=== PATIENT | female | born 1995 | race Caucasian/White ===

== ENCOUNTER → 2019-03-31 | Outpatient (CLI) | payer SELFPAY ==
[2019-03-31 18:27] LABS: GLUCOSE CHALLENGE TEST 1 HOUR 111 MG/DL (LESS THAN 140)
[2019-03-31 18:29] LABS: BASO % 0.1 % (0.0-1.0); EOS # 0.2 10^3/uL (0.0-0.5); EOS % 1.8 % (0.0-3.0); HEMATOCRIT 33.4 % (36.0-47.0); HEMOGLOBIN 10.9 g/dl (12.0-15.5); LYMPH % 20.6 % (24.0-44.0); MEAN CORPUSCULAR HEMOGLOBIN 29.9 pg (27.0-33.0); MEAN CORPUSCULAR HGB CONC 32.6 g/dl (32.0-36.5); MEAN CORPUSCULAR VOLUME 91.8 fl (80.0-96.0); MONO # 0.5 10^3/uL (0.0-0.8); MONO % 5.5 % (0.0-5.0); NEUTROPHILS # 6.8 10^3/uL (1.5-8.5); NEUTROPHILS % 71.5 % (36.0-66.0); PLATELET COUNT, AUTOMATED 147 10^3/uL (150-450); RED BLOOD COUNT 3.64 10^6/uL (4.00-5.40); WHITE BLOOD COUNT 9.6 10^3/uL (4.0-10.0)
[2019-03-31 22:36] LABS: CHLAMYDIA DNA AMPLIFICATION NEGATIVE (NEGATIVE); GC DNA AMPLIFICATION NEGATIVE (NEGATIVE)
[2019-04-01 09:14] LABS: RUBELLA IgG QUALITATIVE SUSCEPTIBLE (IMMUNE)
[2019-04-01 09:43] LABS: HIV 1&2 SCREEN CENTAUR NEGATIVE (NEGATIVE)
== END ==
LOC: M SMT 14:28
PROVIDERS: ATTEND Specialist
DX: Z34.02 Encounter for supervision of normal first pregnancy, second trimester (principal); Z36.89 Encounter for other specified antenatal screening

== ENCOUNTER 2019-05-30 09:19 | Inpatient (IN) | payer OTHER, SELFPAY ==
[~2019-05-30] VITALS: Ht 157.5 cm; Wt 83.4 kg
[2019-05-30] VITALS (13 sets, daily range): BP systolic 95–139; BP diastolic 57–81
[2019-05-30] MEDS ORDERED: PENICILLIN G POTASSIUM IV 5 MU in D5W MINI-BAG PLUS 100 ML IV STA ×2 (09:49→16:36)
[2019-05-30] MEDS ORDERED: TUMS500C PO (09:58)
[2019-05-30] MEDS ORDERED: PRENTAB9 PO (09:58)
--- NOTE | 2019-05-30 10:01 | HPEPDOC ---
Obstetrical History & Physical General Date of Admission May 30, 2019 at 09:48 Primary Care Physician: MANPREET MASTERS CNM History of Present Illness Patient is a 23-year-old female who is a at 40.5 weeks based off of her LMP and consistent with a second trimester ultrasound. She initiated her care with [facility] at 26 weeks gestation. Patient had limited visits. She is Buddhism and declined some of her labs and ultrasounds due to cost. She presented to L&D with complaints of contractions and bloody show. She reports active movement. She denies leaking of fluid. Chief Complaint: Contractions, term Information Provided By: Patient Age: 23 : 1 Term: 0 Pre-term: 0 Abortions: 0 Livin Care Care: Limited Care Dating Final EDC: May 25, 2019 Final EDC by: LMP EGA at Admission: 40.5 Antepartum Course Height (inches): 62 Pre- weight (lbs.): 155 Admission Weight (lbs.): 187 Change in Weight (lbs.): 32 Past Medical History Past Obstetrical History : Past Obstetrical History: [employer] History: No pertinent history Past Medical History Medical History history of varicella Surgical History: Denies/None Family History Significant Family History: Hypertension, Other (varicose veins) Social History Marital Status: Family situation: Spouse/partner home * Smoker: non-smoker Alcohol: Denies Drugs: denies Abuse Violence Screening Have you been hit/kicked/slapp: No Have you been sexually assault: No Imunizations Tdap status: declined Influenza Status: declined Allergies Coded Allergies: No Known Allergies (Unverified , 05/30/19) Medications Scheduled No.137/Iron/Folic Acd ( Vitamin Tablet) 1 Each Tablet, 1 TAB PO DAILY Scheduled PRN Calcium Carbonate (Tums) 200 Mg Tab.chew, 2 TAB PO QID PRN for HEARTBURN Physical Examination Physical Examination GENERAL: Alert and oriented times three. BREAST: . ABDOMEN: Gravid and non-tender to touch. FETUS: Is vertex (VTX) by sterile vaginal examination (SVE), fetus is vertex (VTX) by Reza. HEART RATE: Regular rate and rhythm. LUNGS: Clear to auscultation (CTA). EXTREMITIES: No edema. No clonus. Deep tendon reflexes (DTRs) + 2. Vital Signs/I&O Vital Signs Label Value Date Time Patient Temperature 97.8 degrees F 05/30/19 1005 Pulse 98 05/30/19 1005 Respiratory Rate 16 bpm 05/30/19 1005 Blood Pressure Assessment 125/78 (94) 05/30/19 1005 Source Automatic Cuff (NIBP) Laboratory Data [facility] Laboratory Tests 2 05/30/19 09:53: Serology Scanned Report Hepatitis B Testing Urine Culture: Contaminated Pertinent Laboratoy Data Blood Type: AB+ RBC Antibody Screen: Negative HIV: Negative Hepatitis B: Negative Hepatitis C: Negative Rapid Plasma Reagin: Nonreactive Rubella: Immune Chlamydia/Gonorrhea: Negative Group B Streptococcus: Unknown Glucose Tolerance Test: 111 Vaginal Examination Dilation: 2cm Effacement: 90% Station: -2 Cervical Consistency: Soft (moderate amount of bloody show) Cervical Position: Anterior Presentation: Cephalic presentation Position: Vertex (occiput) Assessment Heart Rate (FHR): 130 Variability: Moderate Accelerations: Positive Decelerations: None Tocometer Contractions: Yes Frequency: irregular Strength: palpated as mild Multi-drug resistant Organism: No history of MDRO Assessment/Plan Assessment IUP at 40.5 weeks gestation latent labor Category I FHR tracing GBS unknown Plan Admit to L&D. Patient scheduled for IOL tomorrow. Will augment labor due to lack of transportation today and patient's early labor status. Diet: regular. OOB ad elizabeth. Group B Streptococcus (GBS) unknown. Start prophylaxis with SROM or cervical change. Labs and intravenous (IV) per unit protocol. Counseled on Cytotec and induction of labor (IOL). Anesthesia per patient's request. Anticipate cervical change and . MANPREET MASTERS CNM May 30, 2019 10:01
[2019-05-30] MEDS ORDERED: miSOPROStol 50 MCG 1/2 TAB (S0191) PO SCH (11:00)
[2019-05-30 11:30] LABS: HEMATOCRIT 35.2 % (36.0-47.0); HEMOGLOBIN 11.9 g/dl (12.0-15.5); MEAN CORPUSCULAR HEMOGLOBIN 29.9 pg (27.0-33.0); MEAN CORPUSCULAR HGB CONC 33.8 g/dl (32.0-36.5); MEAN CORPUSCULAR VOLUME 88.4 fl (80.0-96.0); PLATELET COUNT, AUTOMATED 153 10^3/uL (150-450); RED BLOOD COUNT 3.98 10^6/uL (4.00-5.40); WHITE BLOOD COUNT 10.5 10^3/uL (4.0-10.0)
[2019-05-30] MEDS ORDERED: PENICILLIN G POTASSIUM IV 2.5 MU in IV 1 EA IV SCH (14:00)
--- NOTE | 2019-05-30 16:39 | IPNPDOC ---
Obstetrical Progress Note Date of Service May 30, 2019 Subjective Patient breathing through contractions but coping well. She declines any pain management at this time. Objective Vital Signs Date Time Temp Pulse Resp B/P (MAP) Pulse Ox O2 Delivery O2 Flow Rate FiO2 05/30/19 13:30 97.3 102 16 117/81 (93) Assessment Heart Rate (FHR): 130 Variability: Moderate Accelerations: Positive Decelerations: Early Heart Rate Tracing: Category I Tocometer Contractions: Yes Frequency: regular, other (every 1-4 minutes) Strength: palpated as strong Sterile Vaginal Examination Dilation: 5 cm Effacement (%): 90% Station: 0 Cervical Consistency: Soft Cervical Position: Anterior Postion/Presentation: Cephalic presentation Assessment and Plan Age: 23 : 1 Term: 0 Pre-term: 0 Abortions: 0 Livin EGA at Admission: 40.5 Status: Reassuring Group B Streptococcus: Unknown Anticipate: Vaginal Delivery Additional Comments Spontaneous rupture of clear fluid noted with exam. GBS prophylaxis to be started. MANPREET MASTERS CNM May 30, 2019 16:39
[2019-05-30] MEDS ORDERED: OXYTOCIN 30 UNITS IN 0.9% NaCl 500ML IV BAG (J2590) As Ordered ONE (20:34)
[2019-05-30] MEDS: PENICILLIN G POTASSIUM IV 2.5 MU in IV 1 EA IV SCH (20:49)
[2019-05-31] VITALS (18 sets, daily range): BP systolic 98–142; BP diastolic 56–75
[2019-05-31] MEDS ORDERED: PROMETHAZINE INJ 25 MG/ML VIAL (J2550) IV ONE
--- NOTE | 2019-05-31 00:05 | IPNPDOC ---
Obstetrical Progress Note Date of Service May 30, 2019 Subjective Patient desires IV pain medication to help get her through transition. Objective Vital Signs Date Time Temp Pulse Resp B/P (MAP) Pulse Ox O2 Delivery O2 Flow Rate FiO2 05/30/19 18:33 97.4 75 20 106/65 (79) Assessment Heart Rate (FHR): 120 Variability: Moderate Accelerations: Positive Decelerations: None Heart Rate Tracing: Category I Tocometer Contractions: Yes Frequency: regular Sterile Vaginal Examination Dilation: 8 cm Effacement (%): 100% Station: 0 Cervical Consistency: Soft Cervical Position: Anterior Postion/Presentation: Cephalic presentation Assessment and Plan Age: 23 : 1 Term: 0 Pre-term: 0 Abortions: 0 Livin EGA at Admission: 40.5 Status: Reassuring Group B Streptococcus: Unknown Anticipate: Vaginal Delivery Additional Comments Stadol and phenergan ordered via IV. MANPREET MASTERS CNM May 31, 2019 00:05
[2019-05-31] MEDS ORDERED: LR 1,000 ML IV SCH (00:58)
[2019-05-31] MEDS ORDERED: OXYTOCIN DRIP 30 UNITS in IV 1 EA IV SCH ×2 (01:00→06:39)
[2019-05-31] MEDS: PENICILLIN G POTASSIUM IV 2.5 MU in IV 1 EA IV SCH ×2 (01:27→05:45)
[2019-05-31] MEDS ORDERED: BUTORPHANOL 2 MG/ML INJ (J0595) IV ONE ×2 (02:45)
[2019-05-31] MEDS ORDERED: METHYLERGONOVINE MALEATE 0.2 MG TAB PO PRN (06:45)
[2019-05-31] MEDS ORDERED: ACETAMINOPHEN TAB 650MG DOSE (2X325MG) PO PRN (06:45)
[2019-05-31] MEDS ORDERED: IBUPROFEN 800 MG TAB PO PRN (06:45)
[2019-05-31] MEDS ORDERED: ANUSOL HC CREAM 30GM TOP PRN (06:45)
[2019-05-31] MEDS ORDERED: RHOGAM 300 MCG (1500 IU) INJ (J2790) IM SCH (06:45)
[2019-05-31] MEDS ORDERED: MEASLES,MUMPS,RUBELLA VACCINE INJ (MMR-II) (90707) SC SCH (06:45)
[2019-05-31] MEDS ORDERED: DOCUSATE SODIUM 100 MG CAP PO PRN (06:45)
[2019-05-31] MEDS ORDERED: IBUPROFEN 600 MG TAB PO PRN (06:45)
[2019-05-31] MEDS ORDERED: DIBUCAINE 1% OINTMENT 30GM TOP PRN (06:45)
[2019-05-31] MEDS ORDERED: ACETAMINOPHEN 500 MG TAB PO PRN (06:45)
--- NOTE | 2019-05-31 07:04 | DNPDOC ---
[facility] Delivery Note Delivery Note DATE OF DELIVERY: 05/31/2019 at 0551 PREDELIVERY DIAGNOSIS: 40-6/7 weeks' gestation and labor. POST DELIVERY DIAGNOSIS: Delivered. PROCEDURE: Spontaneous vaginal delivery. [place] REVERSE WINDER: Manpreet Gray CNM, MARVA ANESTHESIA: none. ESTIMATED BLOOD LOSS: 400 mL. FINDINGS: 8 pounds; 3620 grams; female , Score 6/8, cleft lip and cleft palate. DELIVERY SUMMARY: Patient is a 23-year old female who is now a who presented to labor and delivery yesterday at 40.5 weeks gestation in early latent labor. She was augmented with 1 dose of cytotec and IV Pitocin for the last 2 hours prior to pushing and during pushing stage due to minimal cervical change. She spontaneously ruptured clear fluid. The patient progressed to fully dilated after pushing through an anterior lip at 0448. She pushed to a living female in the PURA position with restitution to ROT. The anterior shoulder delivered with ease and the corpus immediately followed. The baby was placed on the maternal abdomen active and crying with stimulation. The cord was clamped x2 after pulsation ceased and cut by the grandmother. The baby was brought over to the warming table for assessment. The baby was found to have a cleft lip and palate upon further assessment. The placenta delivered spontaneously and intact at 0556. Uterine hemostasis was achieved via rapid infusion of IV Pitocin and fundal massage. The vagina, cervix, and perineum was inspected and found to have a first degree perineal laceration, a left labial abrasion, and a left vaginal wall laceration that was repaired with a 3.[address]-1. Mom would like to breast feed but may require a nipple shield due to cleft palate and cleft lip and flat nipples. Both mom and baby are in stable condition. All counts of instruments and sponges are correct. MANPREET GRAY CNM May 31, 2019 07:04
[2019-05-31] MEDS ORDERED: LIDOCAINE 1% MDV 20ML VIAL SC ONE (07:15)
[2019-05-31] MEDS: PRENATAL VITAMINS CHEWABLE TABLET PO SCH (08:30)
[2019-05-31] MEDS ORDERED: FLUCONAZOLE 50MG TABLET PO ONE (20:30)
[2019-05-31] MEDS: NYSTATIN 100,000 UNITS/GM TOPICAL PWD 15 GM TOP SCH (23:39)
[2019-06-01 06:00] VITALS: BP 109/62
[2019-06-01] MEDS: PRENATAL VITAMINS CHEWABLE TABLET PO SCH (08:52)
[2019-06-01] MEDS: NYSTATIN 100,000 UNITS/GM TOPICAL PWD 15 GM TOP SCH (08:53)
== END 2019-06-01 14:25 | disposition home or self-care (01) | DRG 560 ==
LOC: M LDO 09:19 → M LDI 09:48 → M OBS 05-31 09:41
PROVIDERS: ADMIT Advanced Practice Midwife; ATTEND Advanced Practice Midwife
PROC: 10E0XZZ Delivery of Products of Conception, External Approach (ICD-10-PCS; principal; 2019-05-31)
PROC: 0HQ9XZZ Repair Perineum Skin, External Approach (ICD-10-PCS; 2019-05-31)
DX: O48.0 Post-term pregnancy (principal); Z3A.40 40 weeks gestation of pregnancy; Z37.0 Single live birth; O99.824 Streptococcus B carrier state complicating childbirth; O70.0 First degree perineal laceration during delivery